=== PATIENT | female | born 1960 | race Caucasian/White ===

== ENCOUNTER → 2021-04-03 | Outpatient (CLI) | payer MEDICARE, BC ==
[~2021-04-03] MED LIST: ASPI325 PO; ATOR10 PO; CLOR7.5 PO; FISH OIL 1,2001 EAC1; IBUP400 PO; IBUP600 PO; LEVFLO500 PO; METF500C PO; OXYC5; PROP80ER PO; SITA25T2 PO; VIT1CAPS12; ZESTORETIC 20-121 EA PO
[2021-04-04 15:08] LABS: HPV 16 Negative (Negative); HPV 18 Negative (Negative); HPV OTHER HR TYPES Negative (Negative)
== END | disposition home or self-care (01) ==
LOC: LAB SHORT 09:30 → LAB 09:30
PROVIDERS: Obstetrics & Gynecology
DX: Z01.419 Encounter for gynecological examination (general) (routine) without abnormal findings (principal)
CPT/HCPCS: 87624; G0123